=== PATIENT | female | born 1990 | race Caucasian/White ===

== ENCOUNTER 2018-02-15 21:51 | Outpatient (CLI) | payer OTHER, SELFPAY | END 2018-02-15 23:50 | disposition home or self-care (01) | LOC: M LDO 21:51 | DX: O47.1 False labor at or after 37 completed weeks of gestation (principal); Z3A.38 38 weeks gestation of pregnancy | CPT/HCPCS: 59025 ==

== ENCOUNTER 2018-02-22 12:43 | Inpatient (IN) | payer OTHER, SELFPAY ==
[2018-02-22 13:42] LABS: HEMOGLOBIN 13.1 g/dl (12.0-15.5); MEAN CORPUSCULAR HEMOGLOBIN 28.3 pg (27.0-33.0); MEAN CORPUSCULAR HGB CONC 33.6 g/dl (32.0-36.5); MEAN CORPUSCULAR VOLUME 84.2 fl (80.0-96.0); PLATELET COUNT, AUTOMATED 255 10^3/uL (150-450); RED BLOOD COUNT 4.63 10^6/uL (4.00-5.40); RED CELL DISTRIBUTION WIDTH 14.5 % (11.5-14.5); WHITE BLOOD COUNT 11.4 10^3/uL (4.0-10.0)
[2018-02-22 13:58] LABS: BEDSIDE GLUCOSE 97 MG/DL (70-105)
[2018-02-22] MEDS: LR 1,000 ML IV (18:03)
[2018-02-22] MEDS: OXYTOCIN DRIP 30 UNITS in APPROPRIATE DILUENT 1 EA IV ×2 (18:03→23:03)
[2018-02-22] MEDS ORDERED: FENTANYL 2MCG/ML ROPIVACAINE 0.2% IN 0.9% NACL 200ML IVBAG As Ordered (19:59)
[2018-02-22] MEDS ORDERED: NALOXONE INJ 0.4 MG/1 ML VIAL (J2310) IV (20:00)
[2018-02-22] MEDS ORDERED: ONDANSETRON 4MG/2ML VIAL (J2405) IV (20:00)
[2018-02-22] MEDS ORDERED: ePHEDrine SULFATE 25 MG/5 ML(5MG/ML) SYRINGE IV (20:00)
[2018-02-22] MEDS ORDERED: REFRIGERATOR IV KEYS XX (20:00)
[2018-02-22] MEDS ORDERED: EPIDURAL COMMENT XX (20:00)
[2018-02-22] MEDS ORDERED: LACTATED RINGER'S 1000 ML IV (20:00)
[2018-02-22] MEDS ORDERED: diphenhydrAMINE INJ 50MG/ML VIAL (J1200) IV (20:00)
[2018-02-22] MEDS ORDERED: EPIDURAL/PCA KEYS XX (20:00)
[2018-02-22 22:14] LABS: CORD GAS ABE V -4.1; CORD GAS HCO3 A 22.8 MEQ/L; CORD GAS HCO3 V 19.7 MEQ/L; CORD GAS O2 SAT A 50.6 %; CORD GAS O2 SAT V 78.9 %; CORD GAS PCO2 A 54.4 mmHg; CORD GAS PCO2 V 32.1 mmHg; CORD GAS PH A 7.241 UNITS; CORD GAS PH V 7.405 UNITS; CORD GAS PO2 A 24.2 mmHg; CORD GAS PO2 V 33.6 mmHg; CORD GAS SBC A 19.4 MEQ/L; CORD GAS SBC V 20.7 MEQ/L; CORD GAS TCO2 A 24.5 MEQ/L; CORD GAS TCO2 V 20.6 MEQ/L
[2018-02-22] MEDS ORDERED: DOCUSATE SODIUM 100 MG CAP PO (22:15)
[2018-02-22] MEDS ORDERED: RHOGAM 300 MCG (1500 IU) INJ (J2790) IM (22:15)
[2018-02-22] MEDS ORDERED: ANUSOL HC CREAM 30GM TOP (22:15)
[2018-02-22] MEDS ORDERED: MOM 30ML SUSPENSION UDC PO (22:15)
[2018-02-22] MEDS ORDERED: DIBUCAINE 1% OINTMENT 30GM TOP (22:15)
[2018-02-22] MEDS ORDERED: METHYLERGONOVINE MALEATE 0.2 MG TAB PO (22:15)
[2018-02-22] MEDS ORDERED: MEASLES,MUMPS,RUBELLA VACCINE INJ (MMR-II) (90707) SC (22:15)
[2018-02-22] MEDS: FENTANYL/ROPIVACAINE/NACL BAG 200 ML EPIDURAL ×2 (22:48)
[2018-02-22] MEDS: OXYTOCIN INJ 10 UNITS/ML VIAL (J2590) IV (22:57)
[2018-02-23] MEDS: IBUPROFEN 800 MG TAB PO ×2 (00:19→09:14)
[2018-02-23 07:18] LABS: HEMOGLOBIN 11.3 g/dl (12.0-15.5); MEAN CORPUSCULAR HEMOGLOBIN 28.8 pg (27.0-33.0); MEAN CORPUSCULAR HGB CONC 34.2 g/dl (32.0-36.5); PLATELET COUNT, AUTOMATED 197 10^3/uL (150-450); RED BLOOD COUNT 3.93 10^6/uL (4.00-5.40); WHITE BLOOD COUNT 13.1 10^3/uL (4.0-10.0)
[2018-02-23] MEDS: PRENATAL VITAMINS CHEWABLE TABLET PO (08:32)
[2018-02-23] MEDS: ACETAMINOPHEN 500 MG TAB PO (12:56)
[2018-02-24] MEDS: PRENATAL VITAMINS CHEWABLE TABLET PO (09:20)
== END 2018-02-24 10:35 | disposition home or self-care (01) | DRG 775 ==
LOC: M LDI 12:43 → M OBS 02-23
PROVIDERS: Obstetrics & Gynecology
PROC: 10E0XZZ Delivery of Products of Conception, External Approach (ICD-10-PCS; principal; 2018-02-22)
PROC: 10907ZC Drainage of Amniotic Fluid, Therapeutic from Products of Conception, Via Natural or Artificial Opening (ICD-10-PCS; 2018-02-22)
PROC: 3E033VJ Introduction of Other Hormone into Peripheral Vein, Percutaneous Approach (ICD-10-PCS; 2018-02-22)
DX: O24.420 Gestational diabetes mellitus in childbirth, diet controlled (principal); Z3A.39 39 weeks gestation of pregnancy; O99.214 Obesity complicating childbirth; Z68.39 Body mass index [BMI] 39.0-39.9, adult; E66.9 Obesity, unspecified; O69.81X0 Labor and delivery complicated by cord around neck, without compression, not applicable or unspecified; Z37.0 Single live birth

== ENCOUNTER → 2019-01-07 | Outpatient (CLI) | payer OTHER ==
[~2019-01-07] MED LIST: ANUS2.5C2 TOP; AZIT-12 PO; COLA100C5 PO; IBUP-1114 PO; MAPA500T2 PO; NUPE1OIN2 TOP; OMEP10CASR PO; PRED20TA PO; PREN1TAB11 PO; PRIL20TA2 PO; VENTAER INH
--- NOTE | 2019-01-08 07:27 | REP ---
REASON: Exacerbation of asthma. PRIORS: None. FINDINGS: The superior mediastinal structures are midline. The cardiac silhouette is unremarkable in size, shape, and position. The diaphragmatic surfaces of the lungs are regular, and the costophrenic angles are clear. The pulmonary gamino are clear. The imaged osseous structures are intact. IMPRESSION: There is no acute cardiopulmonary disease. Electronically Signed by Ralph Jean DO 01/08/2019 03:37 P
== END ==
LOC: M LRY 17:38
PROVIDERS: ATTEND Nurse Practitioner Family
DX: J45.901 Unspecified asthma with (acute) exacerbation (principal)

== ENCOUNTER → 2019-08-01 | Outpatient (REF) | payer OTHER | LOC: M SFHCLERA 09:53 | PROVIDERS: ATTEND Physician Assistant | DX: J02.9 Acute pharyngitis, unspecified (principal) ==